=== PATIENT | male | born 1945 | race Caucasian/White ===

== ENCOUNTER 2021-11-02 11:48 | Outpatient (CLI) | payer MEDICARE, BC, SELFPAY ==
[2021-11-02 15:10] LABS: Chloride* 105 mmol/L (96-114); Sodium* 138 mmol/L (135-149)
[2021-11-02 15:11] LABS: Potassium* 4.6 mmol/L (3.6-5.1)
[2021-11-02 15:13] LABS: Carbon Dioxide* 23 mmol/L (20-32); Creatinine* 1.2 mg/dL (0.5-1.5); Estimated Glomerular Filt Rate 63 ml/min
[2021-11-02 15:14] LABS: Blood Urea Nitrogen* 20 mg/dL (7-30); Calcium* 9.1 mg/dL (8.4-10.6); Glucose* 174 mg/dL (60-115)
== END 2021-11-02 11:49 | disposition home or self-care (01) ==
LOC: FBOREF 11:49
PROVIDERS: PCP Family Medicine; Visit Provider Family Medicine
DX: I10 Essential (primary) hypertension (principal)
CPT/HCPCS: 80048

== ENCOUNTER 2022-08-04 11:16 | Outpatient (CLI) | payer MEDICARE, BC, SELFPAY ==
[2022-08-04 14:15] LABS: Blood Urea Nitrogen* 20 mg/dL (7-30); Calcium* 9.5 mg/dL (8.4-10.6); Carbon Dioxide* 23 mmol/L (20-32); Chloride* 106 mmol/L (96-114); Cholesterol* 208 mg/dL (90-199); Creatinine* 1.3 mg/dL (0.5-1.5); Estimated Glomerular Filt Rate 57 ml/min; Glucose* 112 mg/dL (60-115); HDL Cholesterol* 38 mg/dL (>=40); LDL Cholesterol Calculated 81 mg/dL (<100); Potassium* 4.9 mmol/L (3.6-5.1); Sodium* 141 mmol/L (135-149)
[2022-08-04 14:16] LABS: Triglycerides* 447 mg/dL (40-149)
== END 2022-08-04 11:17 | disposition home or self-care (01) ==
PROVIDERS: PCP Family Medicine; Visit Provider Family Medicine
DX: I10 Essential (primary) hypertension (principal); E78.5 Hyperlipidemia, unspecified
CPT/HCPCS: 80048; 80061

== ENCOUNTER 2023-07-11 08:28 | Outpatient (CLI) | payer MEDICARE, BC, SELFPAY | END 2023-07-11 08:29 | disposition home or self-care (01) | PROVIDERS: PCP Family Medicine; Visit Provider Family Medicine | DX: E78.2 Mixed hyperlipidemia (principal); I10 Essential (primary) hypertension | CPT/HCPCS: 80048; 80061; 85025 ==

== ENCOUNTER 2024-12-02 15:45 | Outpatient (CLI) | payer MEDICARE, BC, SELFPAY ==
--- NOTE | 2024-12-02 22:50 | PC.NURSE ---
went into chart as pt was tranferred to ED from nurse triage line about abnormal labs, pt listened to the message again and was told to follow up with MD if blood sugar remains high, pt BS 150 at home, will call for followup tomorrow
== END 2024-12-02 15:46 | disposition home or self-care (01) ==
PROVIDERS: PCP Family Medicine; Visit Provider Family Medicine
DX: E11.9 Type 2 diabetes mellitus without complications (principal); E78.2 Mixed hyperlipidemia; I10 Essential (primary) hypertension; R25.2 Cramp and spasm; Z79.4 Long term (current) use of insulin
CPT/HCPCS: 80048; 80061; 83735; 85025